=== PATIENT | male | born 1995 | race African-American/Black ===

== ENCOUNTER 2020-07-31 18:16 | Emergency (ER) | payer OTHER ==
[2020-07-31] MEDS ORDERED: DICLOFENAC SODI75 MG PO ×2 (19:18→19:19)
[2020-07-31] MEDS ORDERED: CYCLOBENZAPRINE10 MG PO ×2 (19:18→19:19)
== END 2020-07-31 19:43 | disposition home or self-care (01) ==
LOC: FER 18:16
DX: S29.012A Strain of muscle and tendon of back wall of thorax, initial encounter (principal); J45.909 Unspecified asthma, uncomplicated; F17.200 Nicotine dependence, unspecified, uncomplicated; Z88.8 Allergy status to other drugs, medicaments and biological substances; X58.XXXA Exposure to other specified factors, initial encounter
CPT/HCPCS: 99283